=== PATIENT | male | born 1980 | race Caucasian/White ===

== ENCOUNTER 2017-08-19 08:42 | Emergency (ER) ==
[2017-08-19 08:43] VITALS: BMI 20.3
[2017-08-19 08:56] VITALS: BP 107/76; TEMP 98.1
[2017-08-19 09:43] LABS: HEMOGLOBIN 15.8 g/dl (14.0-18.0); MEAN CORPUSCULAR HEMOGLOBIN 31.3 pg (27.0-31.0); MEAN CORPUSCULAR HGB CONC 35.1 (31.8-35.4); MEAN CORPUSCULAR VOLUME 89.1 fl (80.0-94.0); PLATELET COUNT 101 10^3/uL (140-440); RED BLOOD COUNT 5.05 10^6/ul (4.70-6.10); WHITE BLOOD COUNT 6.19 K/ul (4.2-10.2)
--- NOTE | 2017-08-19 09:46 | DI ---
EXAM: Two views of the chest. History: Cough. Findings: Heart size is normal. No focal consolidation. No appreciable pleural fluid and no pneumo thorax. No acute osseous abnormalities. Impression: No acute cardiopulmonary process
[2017-08-19 09:54] LABS: ALBUMIN 3.7 g/dL (3.4-5.0); ALBUMIN/GLOBULIN RATIO 1.16; ANION GAP 12.8; BILIRUBIN,TOTAL 0.43 mg/dL (0.00-1.20); CALCIUM 9.2 mg/dL (8.2-10.2); POTASSIUM 3.8 mmol/L (3.5-5.1); TOTAL PROTEIN 6.9 g/dL (6.4-8.2)
[2017-08-19 10:03] LABS: BILIRUBIN,URINE 2+ (NEGATIVE); KETONES,URINE 1+ (NEGATIVE); LEUKOCYTE ESTERASE ,URINE Negative (NEGATIVE); NITRITE,URINE Negative (NEGATIVE); PROTEIN,URINE 1+ (NEGATIVE); URINE, BLOOD Trace-intact (NEGATIVE)
[2017-08-19 10:10] LABS: ADD URINE MICROSCOPIC YES
[2017-08-19 10:12] LABS: ANISOCYTOSIS NOT PRESENT (NOT PRESENT)
[2017-08-19 10:19] LABS: FLU INTERNAL QC INTERNAL QC VALID; RAPID FLU A NEGATIVE (NEGATIVE); RAPID FLU B NEGATIVE (NEGATIVE)
--- NOTE | 2017-08-19 10:26 | ED.PDOC ---
General ED Provider: Dr. SHANNAN FORTE Chief Complaint: Rash Stated Complaint: rash Time Seen by Physician: 09:00 ( rash onset x3 days) Mode of Arrival: Walk-In Information Source: Patient Exam Limitations: No limitations Primary Care Provider: DAVID GLOVER Nursing and Triage Documentation Reviewed and Agree: Yes Skin Complaint Exam - Skin Rash/Itching Complaint/Exam Onset/Duration: 3 days Symptoms Are: Still present Initial Severity: Mild Current Severity: Mild Potential Exposures: Reports: Unknown Aggravating: Reports: None Alleviating: Reports: None Associated Signs and Symptoms: Denies: Difficulty breathing, Fever, Chills Skin Findings: Present: Urticaria, Target lesions, Maculae, Papules Differential Diagnoses: Viral Exanthema Review of Systems - Review Of Systems Constitutional: Reports: No symptoms Eyes: Reports: No symptoms Ears, Nose, Mouth, Throat: Reports: No symptoms Respiratory: Reports: No symptoms Cardiac: Reports: No symptoms GI: Reports: No symptoms : Reports: No symptoms Musculoskeletal: Reports: No symptoms Skin: Reports: Rash Neurological: Reports: No symptoms Endocrine: Reports: No symptoms Hematologic/Lymphatic: Reports: No symptoms All Other Systems: Reviewed and Negative Past Medical History - Past Medical History Previously Healthy: Yes Endocrine: Reports: None Cardiovascular: Reports: None Respiratory: Reports: None Hematological: Reports: None Gastrointestinal: Reports: None Genitourinary: Reports: None Neuro/Psych: Reports: None Musculoskeletal: Reports: None Cancer: Reports: None - Surgical History General Surgical History: Reports: Tonsillectomy - Family History Family History: Reports: None - Social History Smoking Status: Current every day smoker Hx Substance Use: No Alcohol Screening: Occasionally Physical Exam - Physical Exam Appearance: Well-appearing, No pain distress, Well-nourished Eyes: LUNA, EOMI, Conjunctiva clear ENT: Ears normal, Nose normal, Oropharynx normal Respiratory: Airway patent, Breath sounds clear, Breath sounds equal, Respirations nonlabored Cardiovascular: RRR, Pulses normal, No rub, No murmur GI/: Soft, Nontender, No masses, Bowel sounds normal, No Organomegaly Musculoskeletal: Normal strength, ROM intact, No edema, No calf tenderness Skin: Warm, Dry, Normal color (see photos) Neurological: Sensation intact, Motor intact, Reflexes intact, Cranial nerves intact, Alert, Oriented Psychiatric: Affect appropriate, Mood appropriate Critical Care Note - Critical Care Note Total Time (mins): 0 Course - Course Hematology/Chemistry: 08/19/17 09:25 08/19/17 09:25 Orders, Labs, Meds: Lab Review 08/19/17 08/19/17 08/19/17 09:25 09:25 09:50 WBC 6.19 RBC 5.05 Hgb 15.8 Hct 45.0 MCV 89.1 MCH 31.3 H MCHC 35.1 RDW Coeff of [place] 12.7 Plt Count 101 L Neutrophils % (Manual) 70.0 Band Neutrophils % 6.0 H Lymphocytes % (Manual) 17.0 Monocytes % (Manual) 3.0 Reactive Lymphocytes 4.0 Anisocytosis Not present Sodium 138 Potassium 3.8 Chloride 103 Carbon Dioxide 26 Anion Gap 12.8 BUN 14 Creatinine 1.00 Estimated GFR (MDRD) 85.00 BUN/Creatinine Ratio 14.00 Glucose 115 H Calcium 9.2 Total Bilirubin 0.43 AST 54 H ALT 58 Alkaline Phosphatase 70 Total Protein 6.9 Albumin 3.7 Globulin 3.2 Albumin/Globulin Ratio 1.16 Urine Color Urine Clarity Urine pH Ur Specific [place] Urine Protein Urine Glucose (UA) Urine Ketones Urine Blood Urine Nitrite Urine Bilirubin Urine Urobilinogen Ur Leukocyte Esterase Ur Squamous Epith Cells Influenza A (Rapid) Negative Influenza B (Rapid) Negative 08/19/17 09:50 WBC RBC Hgb Hct MCV MCH MCHC RDW Coeff of [place] Plt Count Neutrophils % (Manual) Band Neutrophils % Lymphocytes % (Manual) Monocytes % (Manual) Reactive Lymphocytes Anisocytosis Sodium Potassium Chloride Carbon Dioxide Anion Gap BUN Creatinine Estimated GFR (MDRD) BUN/Creatinine Ratio Glucose Calcium Total Bilirubin AST ALT Alkaline Phosphatase Total Protein Albumin Globulin Albumin/Globulin Ratio Urine Color Yellow Urine Clarity Clear Urine pH 6.0 Ur Specific [place] 1.025 Urine Protein 1+ Urine Glucose (UA) Negative Urine Ketones 1+ Urine Blood Trace-intact Urine Nitrite Negative Urine Bilirubin 2+ Urine Urobilinogen 4.0 Ur Leukocyte Esterase Negative Ur Squamous Epith Cells Pending Influenza A (Rapid) Influenza B (Rapid) Orders Category Date Time Status CBC W/ AUTO DIFF Stat LAB 08/19/17 09:25 Completed COMPREHENSIVE METABOLIC PANEL Stat LAB 08/19/17 09:25 Completed LYME, WESTERN BLOT, SERUM Stat LAB 08/19/17 09:25 Received MANUAL DIFFERENTIAL Stat LAB 08/19/17 09:25 Completed RAPID FLU A/B Stat LAB 08/19/17 09:50 Completed COMFORT MTN SPOTTED FEVER,IgG Routine LAB 08/19/17 Ordered COMFORT MTN SPOTTED FEVER,IgM Routine LAB 08/19/17 09:25 Received STREP SCREEN Stat LAB 08/19/17 09:50 Completed URINALYSIS C & S IF INDICATED Stat LAB 08/19/17 09:50 Results CHEST, 2 VIEWS PA & LAT Stat RADS 08/19/17 09:09 Completed Vital Signs: Temp Pulse Resp BP Pulse Ox 08/19/17 08:51 98.1 F 86 20 107/76 96 Departure - Departure Time of Disposition: 10:25 (please see photos) Disposition: HOME SELF-CARE Discharge Problem: Viral exanthem, unspecified Instructions: Acute Rash (ED) Condition: Good Pt referred to PMD for follow-up: Yes Additional Instructions: Please call your Family Physician as soon as possible to schedule a follow-up appointment. Allergies/Adverse Reactions: Allergies Sulfa (Sulfonamide Antibiotics) Adverse Reaction (Verified 08/19/17 08:56) Home Medications: Ambulatory Orders 1 [No Reported Medications] 0 mg PO DAILY 06/29/13 Disposition Discussed With: Patient, Family
== END 2017-08-19 10:37 | disposition home or self-care (01) ==
LOC: ED 08:42
DX: B09 Unspecified viral infection characterized by skin and mucous membrane lesions (principal); F17.210 Nicotine dependence, cigarettes, uncomplicated
CPT/HCPCS: 36415; 80053; 81001; 85007; 85025; 86617; 86757; 87804; 87880; 99283